=== PATIENT | male | born 1985 | race African-American/Black ===

== ENCOUNTER 2016-09-15 11:53 | Inpatient (IN) | payer OTHER ==
[2016-09-15 14:20] VITALS: BMI 24.7
--- NOTE | 2016-09-15 16:55 | HP ---
Admission ROS [facility] - [facility] Chief Complaint: I WANT TO GO TO REHAB Allergies/Adverse Reactions: Allergies Allergy/AdvReac Type Severity Reaction Status Date / Time acetone Allergy Severe Swelling Verified 09/15/16 17:29 jelly Allergy Severe Swelling Uncoded 09/15/16 17:29 History of Present Illness: 31 YEARS OLD MALE WITH LONG HISTORY OF OPIATE NICOTINE DEPENDENCE, DENIES MEDICAL DENIES MENTAL ILLNESS, LONGEST SOBRIETY 1 YEAR IS ADMITTED TO REHAB Exam Limitations: No Limitations - Ebola screening Have you traveled outside of the country in the last 21 days: No Have you had contact with anyone from an Ebola affected area: No Have you been sick,other than usual withdrawal symptoms: No Do you have a fever: No - Review of Systems Constitutional: Weight Stable EENT: reports: No Symptoms Reported Respiratory: reports: No Symptoms reported Cardiac: reports: No Symptoms Reported GI: reports: No Symptoms Reported : reports: No Symptoms Reported Musculoskeletal: reports: No Symptoms Reported Integumentary: reports: No Symptoms Reported Neuro: reports: No Symptoms reported Endocrine: reports: No Symptoms Reported Hematology: reports: No Symptoms Reported Psychiatric: reports: Judgement Intact, Mood/Affect Appropiate, Orientated x3 Other Systems: Reviewed and Negative Patient History - Patient Medical History Hx Anemia: No Hx Asthma: No Hx Chronic Obstructive Pulmonary Disease (COPD): No Hx Cancer: No Hx Cardiac Disorders: No Hx Congestive Heart Failure: No Hx Hypertension: No Hx Hypercholesterolemia: No Hx Pacemaker: No HX Cerebrovascular Accident: No Hx Seizures: No Hx Dementia: No Hx Diabetes: No Hx Gastrointestinal Disorders: No Hx Liver Disease: No Hx Genitourinary Disorders: No Hx Sexually Transmitted Disorders: No Hx Renal Disease (ESRD): No Hx Thyroid Disease: No Hx Human Immunodeficiency Virus (HIV): No Hx Hepatitis C: No Hx Depression: No Hx Suicide Attempt: No Hx Bipolar Disorder: No Hx Schizophrenia: No - Patient Surgical History Past Surgical History: No - PPD History Previous Implant?: Yes Documented Results: Negative w/o proof Implanted On Prior [facility] Admission?: No PPD to be Administered?: Yes - Smoking Cessation Smoking history: Current every day smoker Have you smoked in the past 12 months: Yes Aproximately how many cigarettes per day: 20 Cigars Per Day: 0 Hx Chewing Tobacco Use: No Initiated information on smoking cessation: Yes 'Breaking Loose' booklet given: 09/15/16 - Substance & Tx. History Hx Alcohol Use: No Hx Substance Use: Yes Substance Use Type: Cocaine, Heroin Hx Substance Use Treatment: Yes - Substances Abused Heroin Route: Inhalation Frequency: Daily Amount used: 3 BAGS Age of first use: 29 Date of Last Use: 09/10/16 Family Disease History - Family Disease History Family Disease History: Other: Father (NO CONTACT) Other Family History: ONE 1/2 SISTER Admission Physical Exam [facility] - Vital Signs Vital Signs: Vital Signs - 24 hr 09/15/16 14:18 Temperature 97.6 F Pulse Rate 88 Respiratory 18 Rate Blood Pressure 122/67 - Physical General Appearance: Yes: No Apparent Distress, Nourished, Appropriately Dressed HEENTM: Yes: Hearing grossly Normal, Normal ENT Inspection, Normocephalic, Normal Voice Respiratory: Yes: Chest Non-Tender, Lungs Clear, Normal Breath Sounds, No Respiratory Distress, No Accessory Muscle Use Neck: Yes: Supple, Trachea in good position Breast: Yes: Breasts Symetrical Cardiology: Yes: Regular Rhythm, Regular Rate, S1, S2 Abdominal: Yes: Non Tender, Soft Genitourinary: Yes: Within Normal Limits Back: Yes: Normal Inspection Musculoskeletal: Yes: full range of Motion, Gait Steady Extremities: Yes: Normal Inspection, Normal Range of Motion, Non-Tender Neurological: Yes: Fully Oriented, Alert, Motor Strength 5/5, Normal Mood/Affect , Normal Response Integumentary: Yes: Normal Color, Warm Lymphatic: Yes: Within Normal Limits - Diagnostic (1) Opioid dependence with withdrawal Current Visit: Yes Status: Acute (2) Nicotine dependence Current Visit: Yes Status: Acute Qualifiers: Nicotine product type: cigarettes Substance use status: uncomplicated Qualified Code(s): F17.210 - Nicotine dependence, cigarettes, uncomplicated Cleared for Admission [facility] - Detox or Rehab [facility] Level of Care: Observation Bed Claeared for Rehab Admission: Yes [facility] Breath Alcohol Content Breath Alcohol Content: 0 Urine Drug Screen - Results Drug Screen Negative: No Urine Drug Screen Results: NHAN-Cocaine, TCA-Tricyclic Antidepress
[2016-09-15] MEDS ORDERED: MAGNESIUM CITRATE 300 ML BOTTLE PO PRN (16:56)
[2016-09-15] MEDS ORDERED: LOPERAMIDE HCL 2 MG CAPSULE PO PRN (16:56)
[2016-09-15] MEDS ORDERED: MENTHOL/PHENOL 1 EACH UD MM PRN (16:56)
[2016-09-15] MEDS ORDERED: guaiFENesin/D-METHORPHAN HB 10 ML UNIT-DOSE CUPS PO PRN (16:56)
[2016-09-15] MEDS ORDERED: P-EPHED 60MG/TRIPROLIDI 2.5MG TABLET PO PRN (16:56)
[2016-09-15] MEDS ORDERED: MAG HYDROX/AL HYDROX/SIMETH 30 ML UNIT-DOSE CUP PO PRN (16:56)
[2016-09-15] MEDS ORDERED: NICOTINE POLACRILEX 2 MG GUM BC PRN (16:56)
[2016-09-15] MEDS ORDERED: MAGNESIUM HYDROX 2400MG/30ML ORAL SUSPENSION 30 ML CUP PO PRN (16:56)
[2016-09-15] MEDS ORDERED: ACETAMINOPHEN 325 MG TABLET (FP) PO PRN (16:56)
[2016-09-15] MEDS ORDERED: TUBERCULIN PPD 5 TU/0.1ML VIAL ID ONE (19:39)
[2016-09-15] MEDS: THIAMINE HCL 100 MG TABLET (FP) PO SCH (21:33)
[2016-09-15 22:39] LABS: URINE APPEARANCE CLEAR; URINE BILIRUBIN NEGATIVE (NEGATIVE); URINE BLOOD NEGATIVE (NEGATIVE); URINE COLOR YELLOW; URINE GLUCOSE (UA) NEGATIVE (NEGATIVE); URINE KETONE NEGATIVE (NEGATIVE); URINE LEUK ESTERASE NEGATIVE (NEGATIVE); URINE NITRITE NEGATIVE (NEGATIVE); URINE PROTEIN NEGATIVE (NEGATIVE); URINE UROBILINOGEN 2.0 E.U/dl E.U./dl (0.2-1.0)
[2016-09-16] MEDS: PRENATAL VITAMINS W/ FOLIC ACID TABLET (FP) PO SCH (10:27)
[2016-09-16] MEDS: NICOTINE 21 MG/24 HOURS TOPICAL PATCH TD SCH (10:27)
[2016-09-16 11:03] LABS: MCH 27.2 pg (25.7-33.7); MCHC 32.2 g/dl (32.0-35.9); MEAN CELL VOLUME 84.3 fl (80-96); MEAN PLT VOLUME 7.2 fl (7.5-11.1); PLATELET COUNT 343 K/MM3 (134-434); RDW 14.1 % (11.9-15.9); WHITE BLOOD COUNT 7.5 K/mm3 (4.0-10.0)
[2016-09-16 12:07] LABS: ALBUMIN 3.3 g/dl (3.4-5.0); ALK PHOS 78 U/L (45-117); ANION GAP 10 (8-16); BILIRUBIN,TOTAL 0.3 mg/dL (0.2-1.0); CALCIUM 8.2 mg/dL (8.5-10.1); CO2 23 mmol/L (21-32); CREATININE 1.2 mg/dL (0.7-1.3); GLUCOSE,RANDOM 112 mg/dL (74-106); SGOT/AST 11 U/L (15-37); SGPT/ALT 20 U/L (12-78)
[2016-09-16] MEDS: THIAMINE HCL 100 MG TABLET (FP) PO SCH (21:38)
[2016-09-16] MEDS: diphenhydrAMINE HCL 50 MG CAPSULE PO PRN (21:39)
[2016-09-17] MEDS: PRENATAL VITAMINS W/ FOLIC ACID TABLET (FP) PO SCH (09:38)
[2016-09-17] MEDS: NICOTINE 21 MG/24 HOURS TOPICAL PATCH TD SCH (09:38)
[2016-09-17] MEDS: diphenhydrAMINE HCL 50 MG CAPSULE PO PRN ×2 (21:40→23:44)
[2016-09-17] MEDS: THIAMINE HCL 100 MG TABLET (FP) PO SCH (21:40)
--- NOTE | 2016-09-17 23:44 | EKG ---
Test Reason : Blood Pressure : / mmHG Vent. Rate : 079 BPM Atrial Rate : 079 BPM P-R Int : 128 ms QRS Dur : 090 ms QT Int : 368 ms P-R-T Axes : -05 070 047 degrees QTc Int : 421 ms NORMAL SINUS RHYTHM NORMAL ECG NO PREVIOUS ECGS AVAILABLE Confirmed by CONTRERAS MCKEON MD ([id number]) on 09/17/2016 11:44:30 PM Referred By: Lencho Blanca Confirmed By:CONTRERAS MCKEON MD
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
[2016-09-18] MEDS: NICOTINE 21 MG/24 HOURS TOPICAL PATCH TD SCH (10:07)
[2016-09-18] MEDS: PRENATAL VITAMINS W/ FOLIC ACID TABLET (FP) PO SCH (10:07)
[2016-09-18] MEDS ORDERED: traZODone HCL 100 MG TABLET (FP) PO SCH (22:30)
[2016-09-18] MEDS: THIAMINE HCL 100 MG TABLET (FP) PO SCH (22:35)
[2016-09-19] MEDS: PRENATAL VITAMINS W/ FOLIC ACID TABLET (FP) PO SCH (09:50)
[2016-09-19] MEDS: NICOTINE 21 MG/24 HOURS TOPICAL PATCH TD SCH (09:50)
--- NOTE | 2016-09-19 10:43 | PN ---
Psychiatric Progress Note Vital Signs: Vital Signs Period Temp Pulse Resp BP Sys/Lopez Pulse Ox Last 24 Hr 97.4 F 74 18-18 117/69 Date of Session: 09/19/16 Chief Complaint:: Insomnia HPI: Patient addressing Opoid and Cocaine Dependence comorbid with Nicotine Dependence and Substance-Induced Sleep Disorder ROS: Unremarkable Current Medications: Active Medications Generic Name Dose Route Start Last Admin Trade Name Freq PRN Reason Stop Dose Admin Acetaminophen 650 mg 09/15/16 16:56 Tylenol - PO Q4H PRN PAIN Al Hydroxide/Mg Hydroxide 30 ml 09/15/16 16:56 Mylanta Oral Suspension - PO Q6H PRN DYSPEPSIA Diphenhydramine HCl 50 mg 09/15/16 16:56 09/17/16 23:44 Benadryl - PO 50 mg HSMR1 PRN Administration INSOMNIA Eucalyptus/Menthol/Phenol/Sorbitol 1 each 09/15/16 16:56 Cepastat Lozenge - MM Q4H PRN SORE THROAT Guaifenesin 10 ml 09/15/16 16:56 Robitussin Dm - PO Q6H PRN COUGH Hydroxyzine Pamoate 50 mg 09/15/16 16:56 Vistaril - PO Q4H PRN AGITATION Ibuprofen 400 mg 09/15/16 16:56 Motrin - PO Q6H PRN SEVERE PAIN Loperamide HCl 4 mg 09/15/16 16:56 Imodium - PO Q6H PRN DIARRHEA Magnesium Citrate 300 ml 09/15/16 16:56 Citroma - PO Q48H PRN CONSTIPATION Magnesium Hydroxide 30 ml 09/15/16 16:56 Milk Of Magnesia - PO DAILY PRN CONSTIPATION Nicotine 21 mg 09/16/16 10:00 09/19/16 09:50 Nicoderm Patch - TD 21 mg DAILY JUAN DIEGO Administration Nicotine Polacrilex 2 mg 09/15/16 16:56 Nicorette Gum - BC Q2H PRN NICOTINE REPLACEMENT RX Multivit/Folic Acid/Iron 1 tab 09/16/16 10:00 09/19/16 09:50 Vitamins ([facility]) - PO 1 tab DAILY JUAN DIEGO Administration Pseudoephedrine/Triprolidine 1 combo 09/15/16 16:56 Actifed - PO TID PRN NASAL CONGESTION Thiamine HCl 100 mg 09/15/16 22:00 09/18/16 22:35 Vitamin B1 - PO 100 mg HS JUAN DIEGO Administration Current Side Effect: No Lab tests ordered: Yes Lab tests reviewed: Yes Provider note:: Patient reports experiencing difficulty to sleep. Told mortgage or loan underwriter that he has not been able to sleep well despite taking Trazadone 100 mg po HS. Requests that Trazadone dosage be increased Total face to face time:: 25 Mental Status Exam - Mental Status Exam Alert and Oriented to: Time, Place, Person Cognitive Function: Fair Patient Appearance: Well Groomed Mood: Hopeful, Euthymic Affect: Appropriate Patient Behavior: Cooperative Speech Pattern: Clear Voice Loudness: Normal Thought Process: Intact Thought Disorder: Not Present Hallucinations: Denies Suicidal Ideation: Denies Homicidal Ideation: Denies Insight/Judgement: Fair Sleep: Poorly Appetite: Good Muscle strength/Tone: Normal Gait/Station: Normal Psychiatric Treatment Plan - Problem List (1) Opioid dependence with withdrawal Current Visit: Yes (2) Alcohol dependence Current Visit: Yes (3) Cocaine dependence Current Visit: Yes (4) Nicotine dependence Current Visit: Yes (5) Substance-induced sleep disorder Current Visit: Yes Initial treatment plan: 1) Discontinue Trazadone 100 mg po Hs. 2) Start Trazadone 150 mg po HS for insomnia. 3) Monitor progress
[2016-09-19] MEDS: traZODone HCL 50 MG TABLET (FP) PO SCH (21:08)
[2016-09-19] MEDS: THIAMINE HCL 100 MG TABLET (FP) PO SCH (21:09)
[2016-09-20] MEDS: PRENATAL VITAMINS W/ FOLIC ACID TABLET (FP) PO SCH (09:47)
[2016-09-20] MEDS: NICOTINE 21 MG/24 HOURS TOPICAL PATCH TD SCH (09:47)
[2016-09-20] MEDS: THIAMINE HCL 100 MG TABLET (FP) PO SCH (21:21)
[2016-09-20] MEDS: traZODone HCL 50 MG TABLET (FP) PO SCH (21:21)
[2016-09-20] MEDS: diphenhydrAMINE HCL 50 MG CAPSULE PO PRN (21:46)
[2016-09-21] MEDS: NICOTINE 21 MG/24 HOURS TOPICAL PATCH TD SCH (09:43)
[2016-09-21] MEDS: PRENATAL VITAMINS W/ FOLIC ACID TABLET (FP) PO SCH (09:43)
[2016-09-21] MEDS: QUEtiapine FUMARATE 100 MG TABLET (FP) PO SCH (21:36)
[2016-09-21] MEDS: THIAMINE HCL 100 MG TABLET (FP) PO SCH (21:36)
[2016-09-21] MEDS: diphenhydrAMINE HCL 50 MG CAPSULE PO PRN (21:36)
[2016-09-22] MEDS: NICOTINE 21 MG/24 HOURS TOPICAL PATCH TD SCH (10:21)
[2016-09-22] MEDS: PRENATAL VITAMINS W/ FOLIC ACID TABLET (FP) PO SCH (10:22)
--- NOTE | 2016-09-22 11:14 | PN ---
Psychiatric Progress Note Vital Signs: Vital Signs Period Temp Pulse Resp BP Sys/Lopez Pulse Ox Last 24 Hr 98.1 F 82 18-20 115/56 Date of Session: 09/20/16 Chief Complaint:: Insomnia HPI: Patient addressing Opoid and Cocaine Dependence comorbid with Nicotine Dependence and Substance-Induced Sleep Disorder ROS: Unremarkable Current Medications: Active Medications Generic Name Dose Route Start Last Admin Trade Name Freq PRN Reason Stop Dose Admin Acetaminophen 650 mg 09/15/16 16:56 Tylenol - PO Q4H PRN PAIN Al Hydroxide/Mg Hydroxide 30 ml 09/15/16 16:56 Mylanta Oral Suspension - PO Q6H PRN DYSPEPSIA Diphenhydramine HCl 50 mg 09/15/16 16:56 09/21/16 21:36 Benadryl - PO 50 mg HSMR1 PRN Administration INSOMNIA Eucalyptus/Menthol/Phenol/Sorbitol 1 each 09/15/16 16:56 Cepastat Lozenge - MM Q4H PRN SORE THROAT Guaifenesin 10 ml 09/15/16 16:56 Robitussin Dm - PO Q6H PRN COUGH Hydroxyzine Pamoate 50 mg 09/15/16 16:56 Vistaril - PO Q4H PRN AGITATION Ibuprofen 400 mg 09/15/16 16:56 Motrin - PO Q6H PRN SEVERE PAIN Loperamide HCl 4 mg 09/15/16 16:56 Imodium - PO Q6H PRN DIARRHEA Magnesium Citrate 300 ml 09/15/16 16:56 Citroma - PO Q48H PRN CONSTIPATION Magnesium Hydroxide 30 ml 09/15/16 16:56 Milk Of Magnesia - PO DAILY PRN CONSTIPATION Nicotine 21 mg 09/16/16 10:00 09/22/16 10:21 Nicoderm Patch - TD 21 mg DAILY JUAN DIEGO Administration Nicotine Polacrilex 2 mg 09/15/16 16:56 Nicorette Gum - BC Q2H PRN NICOTINE REPLACEMENT RX Multivit/Folic Acid/Iron 1 tab 09/16/16 10:00 09/22/16 10:22 Vitamins ([facility]) - PO 1 tab DAILY JUAN DIEGO Administration Pseudoephedrine/Triprolidine 1 combo 09/15/16 16:56 Actifed - PO TID PRN NASAL CONGESTION Quetiapine Fumarate 100 mg 09/21/16 22:00 09/21/16 21:36 Seroquel - PO 100 mg HS JUAN DIEGO Administration Thiamine HCl 100 mg 09/15/16 22:00 09/21/16 21:36 Vitamin B1 - PO 100 mg HS JUAN DIEGO Administration Medication(s) Change(s): 1) D/C Trazadone 150 mg po HS. 2) Start Seroquel 100 mg po HS for insomnia Current Side Effect: No Lab tests ordered: Yes Lab tests reviewed: Yes Provider note:: Patient reports experiencing difficulty to sleep Told comic book writer that he has not been able to sleep well despite taking Trazadone 150 mg po HS. Requests to be prescribed Seroquel which worked well for him in the past. Benefitsvs Risks (including Tardive Dyskinesia) were discussed with patient and he insisted on taking Seroquel Total face to face time:: 25 Mental Status Exam - Mental Status Exam Alert and Oriented to: Time, Place, Person Cognitive Function: Fair Patient Appearance: Well Groomed Mood: Hopeful, Euthymic Affect: Appropriate Patient Behavior: Cooperative Speech Pattern: Clear, Artificially Ventilated Thought Process: Intact Thought Disorder: Not Present Hallucinations: Denies Suicidal Ideation: Denies Homicidal Ideation: Denies Insight/Judgement: Fair Sleep: Poorly Appetite: Good Muscle strength/Tone: Normal Gait/Station: Normal Psychiatric Treatment Plan - Problem List (1) Opioid dependence with withdrawal Current Visit: Yes (2) Alcohol dependence Current Visit: Yes (3) Cocaine dependence Current Visit: Yes (4) Nicotine dependence Current Visit: Yes (5) Substance-induced sleep disorder Current Visit: Yes Initial treatment plan: 1) Discontinue Trazadone 150 mg po HS. 2) Start Seroquel 100 mg po HS for insomnia. Patient told that he will not be given Script for med on discharge. 3) Monitor progress
[2016-09-22] MEDS: diphenhydrAMINE HCL 50 MG CAPSULE PO PRN (21:23)
[2016-09-22] MEDS: THIAMINE HCL 100 MG TABLET (FP) PO SCH (21:23)
[2016-09-22] MEDS: QUEtiapine FUMARATE 100 MG TABLET (FP) PO SCH (21:23)
[2016-09-23] MEDS: PRENATAL VITAMINS W/ FOLIC ACID TABLET (FP) PO SCH (09:47)
[2016-09-23] MEDS: NICOTINE 21 MG/24 HOURS TOPICAL PATCH TD SCH (09:48)
[2016-09-23] MEDS: THIAMINE HCL 100 MG TABLET (FP) PO SCH (21:08)
[2016-09-23] MEDS: QUEtiapine FUMARATE 100 MG TABLET (FP) PO SCH (21:08)
[2016-09-23] MEDS: diphenhydrAMINE HCL 50 MG CAPSULE PO PRN ×2 (21:08→22:12)
[2016-09-24] MEDS: NICOTINE 21 MG/24 HOURS TOPICAL PATCH TD SCH (09:33)
[2016-09-24] MEDS: PRENATAL VITAMINS W/ FOLIC ACID TABLET (FP) PO SCH (09:33)
[2016-09-24] MEDS: THIAMINE HCL 100 MG TABLET (FP) PO SCH (21:24)
[2016-09-24] MEDS: QUEtiapine FUMARATE 100 MG TABLET (FP) PO SCH (21:24)
[2016-09-24] MEDS: diphenhydrAMINE HCL 50 MG CAPSULE PO PRN ×2 (21:24→22:36)
[2016-09-25] MEDS: PRENATAL VITAMINS W/ FOLIC ACID TABLET (FP) PO SCH (09:38)
[2016-09-25] MEDS: NICOTINE 21 MG/24 HOURS TOPICAL PATCH TD SCH (09:38)
--- NOTE | 2016-09-25 10:50 | PN ---
Psychiatric Progress Note Vital Signs: Vital Signs Period Temp Pulse Resp BP Sys/Lopez Pulse Ox Last 24 Hr 97.6 F 84 18-18 117/68 Date of Session: 09/25/16 Chief Complaint:: Insomnia HPI: Patient addressing Opoid and Cocaine Dependence comorbid with Nicotine Dependence and Substance-Induced Sleep Disorder ROS: Unremarkable Current Medications: Active Medications Generic Name Dose Route Start Last Admin Trade Name Freq PRN Reason Stop Dose Admin Acetaminophen 650 mg 09/15/16 16:56 Tylenol - PO Q4H PRN PAIN Al Hydroxide/Mg Hydroxide 30 ml 09/15/16 16:56 Mylanta Oral Suspension - PO Q6H PRN DYSPEPSIA Diphenhydramine HCl 50 mg 09/15/16 16:56 09/24/16 22:36 Benadryl - PO 50 mg HSMR1 PRN Administration INSOMNIA Eucalyptus/Menthol/Phenol/Sorbitol 1 each 09/15/16 16:56 Cepastat Lozenge - MM Q4H PRN SORE THROAT Guaifenesin 10 ml 09/15/16 16:56 Robitussin Dm - PO Q6H PRN COUGH Hydroxyzine Pamoate 50 mg 09/15/16 16:56 Vistaril - PO Q4H PRN AGITATION Ibuprofen 400 mg 09/15/16 16:56 Motrin - PO Q6H PRN SEVERE PAIN Loperamide HCl 4 mg 09/15/16 16:56 Imodium - PO Q6H PRN DIARRHEA Magnesium Citrate 300 ml 09/15/16 16:56 Citroma - PO Q48H PRN CONSTIPATION Magnesium Hydroxide 30 ml 09/15/16 16:56 Milk Of Magnesia - PO DAILY PRN CONSTIPATION Nicotine 21 mg 09/16/16 10:00 09/25/16 09:38 Nicoderm Patch - TD 21 mg DAILY JUAN DIEGO Administration Nicotine Polacrilex 2 mg 09/15/16 16:56 Nicorette Gum - BC Q2H PRN NICOTINE REPLACEMENT RX Multivit/Folic Acid/Iron 1 tab 09/16/16 10:00 09/25/16 09:38 Vitamins ([facility]) - PO 1 tab DAILY JUAN DIEGO Administration Pseudoephedrine/Triprolidine 1 combo 09/15/16 16:56 Actifed - PO TID PRN NASAL CONGESTION Quetiapine Fumarate 100 mg 09/21/16 22:00 09/24/16 21:24 Seroquel - PO 100 mg HS JUAN DIEGO Administration Thiamine HCl 100 mg 09/15/16 22:00 09/24/16 21:24 Vitamin B1 - PO 100 mg HS JUAN DIEGO Administration Medication(s) Change(s): Increase Seroquel to 150 mg po HS for insomnia Current Side Effect: No Lab tests ordered: Yes Lab tests reviewed: Yes Provider note:: Patient continues to reports experiencing difficulty to sleep. Told software writer that he has been sleeping poorly despite taking Seroquel 100 mg po at bedtime. Requests that Seroquel dosage be raised to 150 mg po HS Total face to face time:: 25 Mental Status Exam - Mental Status Exam Alert and Oriented to: Time, Place, Person Cognitive Function: Fair Patient Appearance: Well Groomed Mood: Hopeful, Euthymic Affect: Appropriate Patient Behavior: Cooperative Speech Pattern: Clear Voice Loudness: Normal Thought Process: Intact Thought Disorder: Not Present Hallucinations: Denies Suicidal Ideation: Denies Homicidal Ideation: Denies Insight/Judgement: Fair Sleep: Poorly Appetite: Good Muscle strength/Tone: Normal Gait/Station: Normal Psychiatric Treatment Plan - Problem List (1) Opioid dependence with withdrawal Current Visit: Yes (2) Alcohol dependence Current Visit: Yes (3) Cocaine dependence Current Visit: Yes (4) Nicotine dependence Current Visit: Yes (5) Substance-induced sleep disorder Current Visit: Yes Initial treatment plan: 1) Discontinue Seroquel 100 mg po HS. 2) Start Seroquel 150 mg po HS for insomnia. 3) Monitor progress
[2016-09-25] MEDS: diphenhydrAMINE HCL 50 MG CAPSULE PO PRN ×2 (21:39→22:37)
[2016-09-25] MEDS: QUEtiapine FUMARATE 50 MG TABLET PO SCH (21:41)
[2016-09-25] MEDS: THIAMINE HCL 100 MG TABLET (FP) PO SCH (21:41)
[2016-09-26] MEDS: PRENATAL VITAMINS W/ FOLIC ACID TABLET (FP) PO SCH (09:48)
[2016-09-26] MEDS: IBUPROFEN 400 MG TABLET (FP) PO PRN ×2 (09:48→15:23)
[2016-09-26] MEDS: NICOTINE 21 MG/24 HOURS TOPICAL PATCH TD SCH (09:48)
[2016-09-26] MEDS: hydrOXYzine PAMOATE 50 MG CAPSULE (FP) PO PRN (19:34)
[2016-09-26] MEDS: diphenhydrAMINE HCL 50 MG CAPSULE PO PRN (21:12)
[2016-09-26] MEDS: THIAMINE HCL 100 MG TABLET (FP) PO SCH (21:12)
[2016-09-26] MEDS: QUEtiapine FUMARATE 50 MG TABLET PO SCH (21:12)
[2016-09-27] MEDS: NICOTINE 21 MG/24 HOURS TOPICAL PATCH TD SCH (09:40)
[2016-09-27] MEDS: PRENATAL VITAMINS W/ FOLIC ACID TABLET (FP) PO SCH (09:40)
[2016-09-27] MEDS: hydrOXYzine PAMOATE 50 MG CAPSULE (FP) PO PRN ×3 (10:19→21:09)
[2016-09-27] MEDS: THIAMINE HCL 100 MG TABLET (FP) PO SCH (21:09)
[2016-09-27] MEDS: QUEtiapine FUMARATE 50 MG TABLET PO SCH (21:09)
[2016-09-28 07:31] VITALS: BP 116/66; PULSE 82; TEMP 97.4
[2016-09-28] MEDS: PRENATAL VITAMINS W/ FOLIC ACID TABLET (FP) PO SCH (09:54)
[2016-09-28] MEDS: hydrOXYzine PAMOATE 50 MG CAPSULE (FP) PO PRN (09:54)
[2016-09-28] MEDS: NICOTINE 21 MG/24 HOURS TOPICAL PATCH TD SCH (09:54)
--- NOTE | 2016-09-28 10:28 | PN ---
Psychiatric Progress Note Vital Signs: Vital Signs Period Temp Pulse Resp BP Sys/Lopez Pulse Ox Last 24 Hr 97.4 F 82 18-18 116/66 Date of Session: 09/28/16 Chief Complaint:: Psychiatrist Discharge Note HPI: Patient addressing Alcohol, Opoid and Cocaine Dependence comorbid with Nicotine Dependence and Substance-induced Sleep Disorder Current Medications: Active Medications Generic Name Dose Route Start Last Admin Trade Name Freq PRN Reason Stop Dose Admin Acetaminophen 650 mg 09/15/16 16:56 Tylenol - PO Q4H PRN PAIN Al Hydroxide/Mg Hydroxide 30 ml 09/15/16 16:56 Mylanta Oral Suspension - PO Q6H PRN DYSPEPSIA Diphenhydramine HCl 50 mg 09/15/16 16:56 09/26/16 21:12 Benadryl - PO 50 mg HSMR1 PRN Administration INSOMNIA Eucalyptus/Menthol/Phenol/Sorbitol 1 each 09/15/16 16:56 Cepastat Lozenge - MM Q4H PRN SORE THROAT Guaifenesin 10 ml 09/15/16 16:56 Robitussin Dm - PO Q6H PRN COUGH Hydroxyzine Pamoate 50 mg 09/15/16 16:56 09/28/16 09:54 Vistaril - PO 50 mg Q4H PRN Administration AGITATION Ibuprofen 400 mg 09/15/16 16:56 09/26/16 15:23 Motrin - PO 400 mg Q6H PRN Administration SEVERE PAIN Loperamide HCl 4 mg 09/15/16 16:56 Imodium - PO Q6H PRN DIARRHEA Magnesium Citrate 300 ml 09/15/16 16:56 Citroma - PO Q48H PRN CONSTIPATION Magnesium Hydroxide 30 ml 09/15/16 16:56 Milk Of Magnesia - PO DAILY PRN CONSTIPATION Nicotine 21 mg 09/16/16 10:00 09/28/16 09:54 Nicoderm Patch - TD 21 mg DAILY JUAN DIEGO Administration Nicotine Polacrilex 2 mg 09/15/16 16:56 Nicorette Gum - BC Q2H PRN NICOTINE REPLACEMENT RX Multivit/Folic Acid/Iron 1 tab 09/16/16 10:00 09/28/16 09:54 Vitamins ([facility]) - PO 1 tab DAILY JUAN DIEGO Administration Pseudoephedrine/Triprolidine 1 combo 09/15/16 16:56 Actifed - PO TID PRN NASAL CONGESTION Quetiapine Fumarate 150 mg 09/25/16 22:00 09/27/16 21:09 Seroquel - PO 150 mg HS JUAN DIEGO Administration Thiamine HCl 100 mg 09/15/16 22:00 09/27/16 21:09 Vitamin B1 - PO 100 mg HS JUAN DIEGO Administration Current Side Effect: No Lab tests ordered: Yes Lab tests reviewed: Yes Provider note:: Patient has completed this program today. He has met his treatment goals and will continue to address his issues in [place] [facility] [place]. He verbalized understanding of the negative consequences of his addiction anf from his participation in this program, he has learn to recognize the importance of establishing a sober support network in order to maintain abstinence. He responded well to Seroquel 150 mg po HS for sleep. However he was told in advance and agreed that display card writer was not willing to provide script for Seroquel for that purpose due to possible adverse-effects including Tardive Dyskinesia associated with its mcfp use. He is stable for discharge today Total face to face time:: 35 Mental Status Exam - Mental Status Exam Alert and Oriented to: Time, Place, Person Cognitive Function: Fair Patient Appearance: Well Groomed Mood: Hopeful, Euthymic Affect: Appropriate Patient Behavior: Cooperative Speech Pattern: Clear Voice Loudness: Normal Thought Process: Intact Thought Disorder: Not Present Hallucinations: Denies Suicidal Ideation: Denies Homicidal Ideation: Denies Insight/Judgement: Fair Sleep: Fair Appetite: Good Muscle strength/Tone: Normal Gait/Station: Normal Psychiatric Treatment Plan - Problem List (1) Opioid dependence with withdrawal Current Visit: Yes (2) Alcohol dependence Current Visit: Yes (3) Cocaine dependence Current Visit: Yes (4) Nicotine dependence Current Visit: Yes (5) Substance-induced sleep disorder Current Visit: Yes Initial treatment plan: [facility] is discharged today [facility]
== END 2016-09-28 10:55 | disposition home or self-care (01) | DRG 772 ==
LOC: YASAS 11:53 → Y3W 16:29
PROVIDERS: ADMIT Psychiatry & Neurology Psychiatry; ATTEND Psychiatry & Neurology Psychiatry
PROC: HZ42ZZZ Group Counseling for Substance Abuse Treatment, Cognitive-Behavioral (ICD-10-PCS; principal; 2016-09-28)
DX: F11.23 Opioid dependence with withdrawal (principal); F10.20 Alcohol dependence, uncomplicated; F14.20 Cocaine dependence, uncomplicated; F17.210 Nicotine dependence, cigarettes, uncomplicated; F19.282 Other psychoactive substance dependence with psychoactive substance-induced sleep disorder
CPT/HCPCS: 36415; 80053; 81003; 85027; 86593; 93005; 93010